=== PATIENT | female | born 2000 | race Caucasian/White ===

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

== ENCOUNTER 2022-01-08 07:14 | Emergency (ER) | payer BC ==
[2022-01-08] MEDS: Ketorolac 30 MG/ML SDV IVPUSH ONE (08:07)
[2022-01-08 08:18] LABS: CORONAVIRUS COVID-19 NAA NEGATIVE (NEGATIVE); INFLUENZA A NAA NEGATIVE (NEGATIVE); INFLUENZA B NAA NEGATIVE (NEGATIVE)
[2022-01-08] MEDS: Lactated Ringers 1,000 ML IV STA (10:08)
== END 2022-01-08 11:33 | disposition left against medical advice (07) ==
LOC: MW.ED 07:14
DX: R07.9 Chest pain, unspecified (principal); J06.9 Acute upper respiratory infection, unspecified; Z20.822 Contact with and (suspected) exposure to COVID-19
CPT/HCPCS: 0240U; 71045; 81025; 96374; 99284; J1885; J7120; 99283

== ENCOUNTER 2022-03-19 16:37 | Emergency (ER) | payer BC ==
[2022-03-19] MEDS ORDERED: Codeine/Promethazine 10-6.25 MG/5 ML Syrup 5 ML UD Syringe PO STA (18:05)
[2022-03-19 18:29] LABS: CORONAVIRUS COVID-19 NAA NEGATIVE (NEGATIVE); INFLUENZA A NAA NEGATIVE (NEGATIVE); INFLUENZA B NAA NEGATIVE (NEGATIVE); RESPIRATORY SYNCYTIAL VIR NAA NEGATIVE (NEGATIVE)
== END 2022-03-19 19:54 | disposition home or self-care (01) ==
LOC: MW.ED 16:37
DX: J06.9 Acute upper respiratory infection, unspecified (principal); Z20.822 Contact with and (suspected) exposure to COVID-19
CPT/HCPCS: 0241U; 81001; 93005; 99285

== ENCOUNTER 2022-06-22 16:34 | Emergency (ER) | payer BC ==
[2022-06-22] MEDS ORDERED: metroNIDAZOLE 250 MG Tab PO ONE (18:01)
[2022-06-22 18:23] LABS: BLOOD UREA NITROGEN,BUN 17 mg/dL (7.0-18.0); CARBON DIOXIDE,CO2 28.8 mmol/L (21.0-32.0); CHLORIDE,CL 105 mmol/L (98-107); GLUCOSE RANDOM 77 mg/dL (74-106); POTASSIUM,K 3.9 mmol/L (3.5-5.1); SODIUM,NA 141 mmol/L (136-145)
[2022-06-22 18:25] LABS: ESTIMATED GFR 133 mL/min (>60)
[2022-06-22] MEDS ORDERED: traMADol 50 MG Tab PO ONE (19:00)
[2022-06-22 20:01] LABS: C. TRACHOMATIS BY PCR NOT DETECTED; N. GONORRHOEAE BY PCR NOT DETECTED
== END 2022-06-22 20:32 | disposition home or self-care (01) ==
LOC: MW.ED 16:34
DX: A59.9 Trichomoniasis, unspecified (principal)
CPT/HCPCS: 36415; 80053; 81001; 81025; 84702; 85025; 87086; 87491; 87591; 99284; A9270; 99283

== ENCOUNTER 2022-08-05 11:17 | Emergency (ER) | payer BC ==
[2022-08-05] MEDS ORDERED: Sodium Chloride 0.9% 1,000 ML IV ONE (12:17)
[2022-08-05 12:27] LABS: BASOPHILS PERCENT AUTO 0.5 % (0.0-1.5); EOSINOPHILS ABSOLUTE AUTO 0.2 K/uL (0.0-0.7); EOSINOPHILS PERCENT AUTO 2.2 % (0.0-7.0); HEMATOCRIT 37.2 % (36.0-46.0); HEMOGLOBIN 12.8 g/dL (12.0-16.0); LYMPHOCYTES ABSOLUTE AUTO 1.8 K/uL (0.6-2.4); LYMPHOCYTES PERCENT AUTO 21.9 % (16.0-40.0); MEAN CORPUSCULAR HEMOGLOBIN 31.9 pg (27.0-32.0); MEAN CORPUSCULAR HGB CONC 34.4 g/dL (31.0-37.0); MEAN CORPUSCULAR VOLUME 92.8 fL (80.0-98.0); MONOCYTES ABSOLUTE AUTO 0.5 K/uL (0.0-0.8); MONOCYTES PERCENT AUTO 5.9 % (0.0-15.0); NEUTROPHILS ABSOLUTE AUTO 5.7 K/uL (1.4-5.7); NEUTROPHILS PERCENT AUTO 69.5 % (48.0-80.0); NRBC ABSOLUTE 0 K/uL; PLATELET COUNT,PLT 194 K/uL (150-400); RED BLOOD CELL COUNT 4.01 M/uL (4.30-5.90); WHITE BLOOD CELL COUNT,WBC 8.19 K/uL (4.0-11.0)
[2022-08-05] MEDS ORDERED: LORazepam 2 MG/ML SDV IVPUSH ONE (12:47)
[2022-08-05 12:50] LABS: A/G RATIO 1.6 (0.9-1.6); ALBUMIN 4.4 g/dL (3.4-5.0); BILIRUBIN TOTAL 2.1 mg/dL (0.2-1.0); CALCIUM 9.8 mg/dL (8.5-10.1); CARBON DIOXIDE,CO2 25.4 mmol/L (21.0-32.0); CREATININE 0.7 mg/dL (0.6-1.0); EST CRCL DRUG DOSING (CG) 89.79 mL/min; POTASSIUM,K 3.9 mmol/L (3.5-5.1); PROTEIN TOTAL,TP 7.1 g/dL (6.4-8.2)
[2022-08-05 14:03] LABS: LACTIC ACID 3.3 mmol/L (0.4-2.0)
== END 2022-08-05 13:15 | disposition left against medical advice (07) ==
LOC: MW.ED 11:17
DX: Z76.5 Malingerer [conscious simulation] (principal); R74.02 Elevation of levels of lactic acid dehydrogenase [LDH]; Z72.0 Tobacco use
CPT/HCPCS: 36415; 80053; 83605; 83690; 84703; 85025; 96374; 99284; J2060; J7030; 93005; 93010

== ENCOUNTER 2022-10-20 03:48 | Emergency (ER) | payer SELFPAY ==
[2022-10-20] MEDS ORDERED: Ibuprofen 600 MG Tab PO ONE (04:33)
[2022-10-20] MEDS ORDERED: Dexamethasone 10 MG/ML SDV PO ONE (04:33)
== END 2022-10-20 05:05 | disposition home or self-care (01) ==
LOC: MW.ED 03:48
DX: J02.9 Acute pharyngitis, unspecified (principal)
CPT/HCPCS: 87651; 99283; A9270; J8540

== ENCOUNTER 2022-11-17 13:17 | Emergency (ER) | payer SELFPAY ==
[2022-11-17 14:16] LABS: BASOPHILS PERCENT AUTO 0.3 % (0.0-1.5); EOSINOPHILS ABSOLUTE AUTO 0.2 K/uL (0.0-0.7); EOSINOPHILS PERCENT AUTO 1.7 % (0.0-7.0); HEMATOCRIT 40.9 % (36.0-46.0); HEMOGLOBIN 13.3 g/dL (12.0-16.0); LYMPHOCYTES ABSOLUTE AUTO 1.3 K/uL (0.6-2.4); LYMPHOCYTES PERCENT AUTO 12.5 % (16.0-40.0); MEAN CORPUSCULAR HEMOGLOBIN 31.9 pg (27.0-32.0); MEAN CORPUSCULAR HGB CONC 32.5 g/dL (31.0-37.0); MEAN CORPUSCULAR VOLUME 98.1 fL (80.0-98.0); MONOCYTES ABSOLUTE AUTO 0.7 K/uL (0.0-0.8); NEUTROPHILS ABSOLUTE AUTO 7.9 K/uL (1.4-5.7); NEUTROPHILS PERCENT AUTO 78.5 % (48.0-80.0); NRBC ABSOLUTE 0 K/uL; PLATELET COUNT,PLT 222 K/uL (150-400); RED BLOOD CELL COUNT 4.17 M/uL (4.30-5.90); WHITE BLOOD CELL COUNT,WBC 10.11 K/uL (4.0-11.0)
[2022-11-17 16:16] LABS: A/G RATIO 1.5 (0.9-1.6); ALBUMIN 4.1 g/dL (3.4-5.0); BILIRUBIN TOTAL 3.6 mg/dL (0.2-1.0); CALCIUM 9.2 mg/dL (8.5-10.1); CARBON DIOXIDE,CO2 24.8 mmol/L (21.0-32.0); CREATININE 0.7 mg/dL (0.6-1.0); EST CRCL DRUG DOSING (CG) 88.44 mL/min; PROTEIN TOTAL,TP 6.9 g/dL (6.4-8.2)
[2022-11-17 16:19] LABS: INR 1.15 (0.86-1.11)
[2022-11-17] MEDS: Sodium Chloride 0.9% 500 ML IV SCH (16:45)
[2022-11-17] MEDS: Ketorolac 30 MG/ML SDV IVPUSH ONE (16:45)
[2022-11-17] MEDS: Sodium Chloride 0.9% 10 ML Syringe FLUSH PRN (16:45)
[2022-11-17] MEDS: Sodium Chloride 0.9% 2.5 ML Syringe FLUSH PRN (16:46)
[2022-11-17 18:00] LABS: APPEARANCE,URINE CLEAR; COLOR,URINE YELLOW; GLUCOSE,URINE NEGATIVE (NEGATIVE); KETONES,URINE >=80 mg/dL (NEGATIVE); LEUKOCYTE ESTERASE,URINE MODERATE (NEGATIVE); NITRITE,URINE POSITIVE (NEGATIVE); OCCULT BLOOD,URINE MODERATE (NEGATIVE); PH,URINE 6.5 (5.0-8.0); PROTEIN,URINE >=300 mg/dL (NEGATIVE)
[2022-11-17] MEDS ORDERED: Sodium Chloride 0.9% 500 ML IV SCH (18:00)
[2022-11-17 18:03] LABS: BILIRUBIN,URINE MODERATE (NEGATIVE)
[2022-11-17 18:15] LABS: EPITHELIAL CELLS,URINE FEW (NONE-FEW); WBC,URINE 30-40 (0-5/HPF)
[2022-11-17 18:16] LABS: BACTERIA,URINE 1+ (NEGATIVE)
[2022-11-17] MEDS: cefTRIAXone 1 GM in Sodium Chloride 0.9% 50 ML IV ONE (18:28)
== END 2022-11-17 19:04 | disposition home or self-care (01) ==
LOC: MW.ED 13:17
DX: N39.0 Urinary tract infection, site not specified (principal)
CPT/HCPCS: 36415; 74176; 80053; 81001; 81025; 83690; 84703; 85025; 85610; 87086; 96361; 96365; 96375; 99284; J0696; J1885; J3490; J7040; 87088; 87186